=== PATIENT | female | born 1960 | race Caucasian/White ===

== ENCOUNTER → 2017-08-20 | Outpatient (REF) | payer OTHER | LOC: M SFHCWAGY 10:46 | DX: R87.615 Unsatisfactory cytologic smear of cervix (principal) | CPT/HCPCS: G0123 ==

== ENCOUNTER → 2017-12-04 | Outpatient (REF) | payer OTHER ==
[2017-12-08 14:16] LABS: HPV HYBRID CAPTURE II Negative (Negative)
== END ==
LOC: M SFHCWAGY 09:58
DX: R87.615 Unsatisfactory cytologic smear of cervix (principal)

== ENCOUNTER → 2021-01-09 | Outpatient (REF) | payer BC, OTHER | LOC: M SFHCWAGY 13:12 | PROVIDERS: ATTEND Nurse Practitioner Women's Health | DX: Z12.4 Encounter for screening for malignant neoplasm of cervix (principal) ==

== ENCOUNTER → 2022-08-20 | Outpatient (REF) | payer BC | LOC: M SFHCWAGY 17:09 | PROVIDERS: ATTEND Nurse Practitioner Family | DX: Z12.4 Encounter for screening for malignant neoplasm of cervix (principal) | CPT/HCPCS: 87624; G0123 ==

== ENCOUNTER → 2024-06-23 | Outpatient (REF) | payer BC | LOC: M LAB REF 16:04 | PROVIDERS: ATTEND Student in an Organized Health Care Education/Training Program | DX: R30.0 Dysuria (principal) ==